=== PATIENT | female | born 1990 | race Caucasian/White ===

== ENCOUNTER 2017-04-18 07:00 | Day surgery (SDC) | payer BC ==
[~2017-04-18] VITALS: Ht 177.8 cm; Wt 74.8 kg
[~2017-04-18 07:00] MED LIST: AMBIEN10 MG PO; NORINYL PO
[2017-04-18 09:16] VITALS: BP 108/67; Ht 177.8 cm; Wt 74.8 kg
[2017-04-18 09:31] LABS: HCG URINE NEGATIVE (NEGATIVE)
[2017-04-18 09:47] LABS: HEMATOCRIT 38.8 % (36.0-48.0); HEMOGLOBIN 12.9 g/dL (12-16); MCH 29.2 pg (26.0-34.0); MCHC 33.2 g/dL (31.0-37.0); MCV 87.8 fL (80.0-100.0); MEAN PLATELET VOLUME 12.6 fL (7.4-10.4); RBC 4.42 10x6/uL (4.00-5.40); RDW 12.3 % (11.5-14.5); WBC 13.5 10x3/uL (4.8-10.8)
--- NOTE | 2017-04-18 11:15 | HP ---
PATIENT: ARLETH NDIAYE MEDICAL RECORD: [id number] ACCOUNT: [id number] LOCATION:[facility] : 88 ADMISSION DATE: 04/18/17 HISTORY AND PHYSICAL EXAMINATION HISTORY OF PRESENT ILLNESS: Arleth is a 27-year-old. She has been having persistent problems with pharyngitis and tonsilliths. She is being admitted for tonsillectomy and adenoidectomy. PAST MEDICAL HISTORY: Includes reflux and kidney stones. PAST SURGICAL HISTORY: Includes kidney stone removal in 2015 and 2016, cholecystectomy, and appendectomy in 2006. CURRENT MEDICATIONS: Pirmella, Ambien. ALLERGIES: No known drug allergies. PHYSICAL EXAMINATION: GENERAL: She is a healthy-appearing. FACE: Normal, symmetric, no lesions. EYES: Sclerae and conjunctivae are normal. EARS: Canals and TMs are normal. NOSE: No masses, polyps, or drainage. ORAL CAVITY AND OROPHARYNX: A 3+ tonsils with tonsilliths bilaterally. NECK: No masses, no adenopathy. CHEST: Clear. CARDIOVASCULAR: Regular rate and rhythm, no murmur. EXTREMITIES: Normal. IMPRESSION: Chronic pharyngitis. PLAN: Tonsillectomy and adenoidectomy. TRANSINT:[id number] Voice Confirmation ID: [id number] DOCUMENT ID: [id number] ANTONIO BRIAN MD at 1115 CC: [id number] DICTATION DATE: 04/14/17 1503 RESEARCH AND DEVELOPMENT RESEARCHER: 04/14/17 [id number] [place] [address]
--- NOTE | 2017-04-18 13:30 | NUR ---
PT REC'D TO ROOM VIA STRETCHER. DROWSY, BUT RESPONDS TO VERBAL STIMULI. ICE CHIPS TAKEN.
--- NOTE | 2017-04-18 14:20 | NUR ---
PT C/O THROAT PAIN. LORTAB ELIXIR GIVEN ORDERED. SEE EMAR.
[2017-04-18] MEDS ORDERED: HYDROCODON-ACET15 ML (14:33)
--- NOTE | 2017-04-18 15:00 | NUR ---
STATES PAIN RELIEF WITH RX.
--- NOTE | 2017-04-18 15:25 | NUR ---
DR. TONG NOTIFIED OF PT C/O NAUSEA. ORDER REC'D.
--- NOTE | 2017-04-18 15:43 | NUR ---
PHENERGAN 25 MG GIVEN IM IN LEFT HIP UOQ.
--- NOTE | 2017-04-18 16:15 | NUR ---
PT FEELING BETTER, SITTING UP, DRESSED, READY TO GO. IV D/C'D CATH INTACT.
--- NOTE | 2017-04-18 16:25 | NUR ---
D/C INSTRUCTIONS EXPLAINED TO PT, VOICED UNDERSTANDING. COPIES OF ALL GIVEN, WELL WRITTEN RX FOR LORTAB ELIXIER PER DR. BRIAN. D/C'D HOME VIA W/C TO PRIVATE CAR.
--- NOTE | 2017-06-15 13:13 | OP ---
PATIENT NAME: RAFY NDIAYE MEDICAL RECORD: [id number] :88 LOCATION:[facility] ADMISSION DATE: SURGEON: ANTONIO HERNÁNDEZ MD DATE OF OPERATION: 04/18/2017 PREOPERATIVE DIAGNOSIS: Chronic pharyngitis. POSTOPERATIVE DIAGNOSIS: Chronic pharyngitis. PROCEDURE: Tonsillectomy and adenoidectomy. SURGEON: Antonio Hernández MD ANESTHESIA: General orotracheal. BLOOD LOSS: 10 cc. SPECIMENS: Right and left tonsil. COMPLICATIONS: None. DISPOSITION: Recovery stable. DESCRIPTION OF PROCEDURE: The patient was brought to the operating room and placed in supine position, sedated and intubated by anesthesia. The eyes were taped. The table was turned 90 degrees. A head drape was applied and she was positioned for tonsillectomy. Using a headlight, a Roque-Willian mouth gag was carefully inserted and elevated on a towel on her chest. The palate was examined and palpated, it was normal. A red rubber catheter was placed through the right side of the nose into the pharynx and grasped with tonsil clamp to retract the soft palate. Using a mirror, the nasopharynx was examined. Suction cautery on a setting of 35 was used to ablate and suction the adenoid pad with no significant bleeding. The red rubber catheter was let down and removed. The right tonsil was grasped at the superior pole with a straight Allis clamp. Spatula tip cautery on a setting of 9 was used to dissect out the tonsil along its capsule, preserving the anterior and posterior tonsillar pillars. The left tonsil was removed in the same fashion. Then, both sides of the nose were irrigated with saline. The pharynx was suctioned. Tonsillar fossae were agitated. Suction cautery on a setting of 20 was used to control minimal oozing. With the field clean and dry, the Roque-Willian mouth gag was let down and removed. She was awakened, extubated, and transported to recovery in good condition. No complications. TRANSINT:[id number] Voice Confirmation ID: [id number] DOCUMENT ID: [id number] ANTONIO HERNÁNDEZ MD at 1313 CC: [id number] DICTATION DATE: 04/18/17 125 ENGINEERING RECRUITER: 04/18/171923 [facility] 04/18/17 [facility] [address] [id number]
== END 2017-04-18 16:33 | disposition home or self-care (01) ==
LOC: D.OPS 07:00
PROVIDERS: Anesthesiology; Otolaryngology
DX: J35.01 Chronic tonsillitis (principal); J03.90 Acute tonsillitis, unspecified; J35.3 Hypertrophy of tonsils with hypertrophy of adenoids; Z79.899 Other long term (current) drug therapy; K21.9 Gastro-esophageal reflux disease without esophagitis; Z01.812 Encounter for preprocedural laboratory examination